=== PATIENT | male | born 1970 | race Caucasian/White ===

== ENCOUNTER 2019-09-03 10:22 | Inpatient (IN) | payer MEDICAID ==
[~2019-09-03] VITALS: Ht 190.5 cm; Wt 95.6 kg
[2019-09-03] MEDS ORDERED: methylPREDNISolone SOD SUCC 125 MG/2 ML VL IV ONE (11:00)
[2019-09-03] MEDS ORDERED: ONDANSETRON HCL 4 MG/2 ML VIAL IV ONE (11:00)
[2019-09-03] MEDS ORDERED: MORPHINE SULF INJ 2 MG/ML SYRINGE 1ML IV ONE (11:00)
[2019-09-03 11:21] LABS: Basophils # (auto) 0 uL; Basophils % (auto) 0.3 % (0.0-2.0); Eosinophils # (auto) 0.1 uL; Eosinophils % (auto) 0.6 % (0.0-7.0); Hemoglobin 15.1 g/dL (13.5-17.5); Lymphocytes # (auto) 1.5 uL; Lymphocytes % (auto) 14.3 % (10.0-50.0); Mean Corpuscular Hemoglobin 31.2 pg (28.0-32.0); Mean Corpuscular Hgb Conc. 33.7 g/dL (32.0-36.0); Mean Corpuscular Volume 92.7 fL (80.0-100.0); Monocytes # (auto) 0.5 uL; Monocytes % (auto) 4.9 % (0.0-12.0); Neutrophils # (auto) 8.6 uL; Neutrophils % (auto) 79.9 % (37.0-80.0); Nucleated Red Blood Cells % 0.1 %; Platelet Count (auto) 405 10^3/uL (140-450); Red Blood Cells 4.85 10^6/uL (4.5-5.90); Red Cell Distribution Width 13.3 % (11.8-14.3); White Blood Cell 10.7 10^3/uL (4.4-10.8)
[2019-09-03 11:30] LABS: Alanine Aminotransferase 56 U/L (16-61); Albumin 2.6 g/dL (3.4-5.0); Anion Gap 7 (5-15); Aspartate Aminotransferase 25 U/L (15-37); BUN/Creatinine Ratio 21.5; Blood Urea Nitrogen 28 mg/dL (7-18); Calcium 8.3 mg/dL (8.5-10.1); Carbon Dioxide 25 mmol/L (21-32); Chloride 105 mmol/L (98-107); GFR African American 76 mL/min; GFR Non-African American 63 mL/min; Glucose 141 mg/dL (74-106); Potassium 4.1 mmol/L (3.5-5.1); Sodium 137 mmol/L (136-145)
[2019-09-03 11:38] LABS: Alkaline Phosphatase 79 U/L (45-117); Bilirubin, Total 0.3 mg/dL (0.2-1.0); Total Protein 7.3 g/dL (6.4-8.2)
[2019-09-03 11:59] LABS: Lactic Acid w/Reflex 2.6 mmol/L (0.4-2.0)
[2019-09-03 12:24] LABS: Alcohol, Urine < 3.0 mg/dL (0-5); Amphetamine Screen, Urine NEGATIVE (NEGATIVE); Barbiturate Scree,Urine NEGATIVE (NEGATIVE); Benzodiazephine Screen, Urine NEGATIVE (NEGATIVE); Cannabinoid Screen, Urine NEGATIVE (NEGATIVE); Cocaine Screen, Urine NEGATIVE (NEGATIVE); Phencyclidine Screen, Urine NEGATIVE (NEGATIVE)
[2019-09-03 12:32] LABS: Opiate Scree,Urine POSITIVE (NEGATIVE)
[2019-09-03] MEDS ORDERED: MORPHINE SULF INJ 2 MG/ML SYRINGE 1ML IV PRN ×2 (16:00)
[2019-09-03] MEDS ORDERED: HYDROcodone-ACET 10/325MG TAB PO PRN (16:00)
[2019-09-03] MEDS ORDERED: NITROGLYCERIN 0.4 MG SL TAB SL PRN (16:00)
[2019-09-03] MEDS ORDERED: ALBUTEROL SULF 2.5 MG/0.5ML(0.5%) NEB SOLN NEB PRN (16:00)
[2019-09-03] MEDS ORDERED: SODIUM CHLORIDE 0.9% 1,000 ML IV ONE (16:00)
[2019-09-03] MEDS ORDERED: IPRATROPIUM BROM 0.5 MG/2.5ML INH SOL NEB PRN (16:00)
[2019-09-03] MEDS ORDERED: IOHEXOL 350 MG/ML 100ML IJ ONE (16:05)
[2019-09-03 17:14] LABS: INR 1.04 (0.9-1.15); Partial Thromboplastin Time 25.4 sec (23.64-32.05)
[2019-09-03] MEDS ORDERED: BICT1TAB PO (17:37)
[2019-09-03] MEDS ORDERED: GABA100C9 PO (17:37)
[2019-09-03] MEDS ORDERED: HYDR-4833 PO (17:37)
[2019-09-03] MEDS: MEPERIDINE HCL (25 MG/ML) 1ML VIAL IV PRN (18:16)
[2019-09-03] MEDS ORDERED: BACL20TA PO (18:29)
[2019-09-03] MEDS ORDERED: AZITHROMYCIN 250 MG TAB PO ONE (19:00)
[2019-09-03 20:00] VITALS: BP 121/71
[2019-09-03 20:01] VITALS: BP 117/81
[2019-09-03 22:00] VITALS: BP 121/71
[2019-09-03] MEDS ORDERED: GABAPENTIN 100 MG CAP PO SCH ×2 (22:00)
[2019-09-04] MEDS: MEPERIDINE HCL (25 MG/ML) 1ML VIAL IV PRN ×3 (00:24→13:04)
[2019-09-04 05:57] VITALS: BP 117/86
[2019-09-04] MEDS: GABAPENTIN 400 MG CAP PO SCH ×2 (06:44→14:44)
[2019-09-04 09:00] VITALS: BP 130/81
[2019-09-04] MEDS: NITROGLYCERIN 0.4 MG SL TAB SL PRN ×2 (09:25→09:30)
[2019-09-04] MEDS ORDERED: AZITHROMYCIN 250 MG TAB PO SCH (10:00)
[2019-09-04] MEDS ORDERED: PANTOPRAZOLE 40 MG TAB PO SCH (10:00)
[2019-09-04] MEDS ORDERED: BIKTARVY PO SCH (10:00)
[2019-09-04] MEDS ORDERED: SULFAMETHOX W/TRIMETH(800/160MG) DS TAB PO ONE (10:15)
[2019-09-04 13:00] VITALS: BP 102/62
[2019-09-04] MEDS ORDERED: SULFAMETHOX W/TRIMETH(800/160MG) DS TAB PO SCH (22:00)
[2019-09-04] MEDS ORDERED: methylPREDNISolone SOD SUCC 40 MG/ML VL IV SCH (22:00)
== END 2019-09-04 16:50 | disposition left against medical advice (07) | DRG 140 ==
LOC: ER 10:22 → TELE 10:23 → ER 10:45 → TELE-CENTR 17:11
PROVIDERS: ADMIT Nurse Practitioner Acute Care; ATTEND Internal Medicine
DX: J44.0 Chronic obstructive pulmonary disease with (acute) lower respiratory infection (principal); J18.9 Pneumonia, unspecified organism; N18.3 Chronic kidney disease, stage 3 (moderate); F17.210 Nicotine dependence, cigarettes, uncomplicated; Z79.891 Long term (current) use of opiate analgesic; Z80.9 Family history of malignant neoplasm, unspecified; Z83.3 Family history of diabetes mellitus; Z79.899 Other long term (current) drug therapy; Z53.29 Procedure and treatment not carried out because of patient's decision for other reasons
CPT/HCPCS: 36415; 71046; 71275; 80053; 80307; 83605; 83880; 84484; 85025; 85379; 85610; 85730; 87040; 93005; 93971; G0378; J2405

== ENCOUNTER 2022-04-25 18:21 | Emergency (ER) | payer MEDICAID ==
[~2022-04-25] VITALS: Ht 188 cm; Wt 106.8 kg
[~2022-04-25 18:21] MED LIST: BACL20TA PO; BICT1TAB PO; GABA100C9 PO; HYDR-4833 PO
[2022-04-25] MEDS ORDERED: MORPHINE SULFATE INJ 2 MG/ml SYRG IM ONE (21:15)
[2022-04-25 21:44] VITALS: BP 148/82
== END 2022-04-25 23:13 | disposition home or self-care (01) ==
LOC: EDBD 18:21 → ER 18:24
DX: G89.29 Other chronic pain (principal); M25.552 Pain in left hip; M16.12 Unilateral primary osteoarthritis, left hip; J44.9 Chronic obstructive pulmonary disease, unspecified; F17.210 Nicotine dependence, cigarettes, uncomplicated; Z79.899 Other long term (current) drug therapy
CPT/HCPCS: 72192; 96372; 99284; J2270

== ENCOUNTER 2023-04-25 17:07 | Inpatient (IN) | payer MEDICAID ==
[~2023-04-25] VITALS: Ht 188 cm; Wt 109.3 kg
[~2023-04-25 17:07] MED LIST changes: +GABA-1308 PO; -GABA100C9 PO
[2023-04-25] MEDS ORDERED: IOHEXOL 350 MG/ML 100ML IJ ONE ×2 (19:35→20:38)
[2023-04-25] MEDS ORDERED: ENOXAPARIN SOD 100 MG/1 ML SYRINGE SC ONE (20:00)
[2023-04-25 20:05] LABS: Basophils # (auto) 0 10 ^3/uL (0-0.2); Basophils % (auto) 0.7 % (0.0-2.0); Eosinophils # (auto) 0.1 10 ^3/uL (0-0.8); Eosinophils % (auto) 1.7 % (0.0-7.0); Hematocrit 39.6 % (41.0-53.0); Hemoglobin 13.3 g/dL (13.5-17.5); Lymphocytes # (auto) 2.1 10 ^3/uL (0.4-5.4); Lymphocytes % (auto) 34.3 % (10.0-50.0); Mean Corpuscular Hemoglobin 30.4 pg (28.0-32.0); Mean Corpuscular Hgb Conc. 33.6 g/dL (32.0-36.0); Mean Corpuscular Volume 90.5 fL (80.0-100.0); Monocytes # (auto) 0.5 10 ^3/uL (0-1.3); Neutrophils # (auto) 3.4 10 ^3/uL (1.6-8.6); Neutrophils % (auto) 55.3 % (37.0-80.0); Nucleated Red Blood Cells % 0.3 %; Red Blood Cells 4.37 10^6/uL (4.5-5.90); Red Cell Distribution Width 14.6 % (11.8-14.3); White Blood Cell 6.1 10^3/uL (4.4-10.8)
[2023-04-25 20:15] LABS: Albumin 4.4 g/dL (3.2-4.8); Alkaline Phosphatase 110 U/L (46-116); Anion Gap 5.7 (5-15); Aspartate Aminotransferase 12 U/L (13-40); BUN/Creatinine Ratio 12.7 (10.0-20.0); Bilirubin, Total 0.5 mg/dL (0.2-1.0); Blood Urea Nitrogen 16 mg/dL (9-23); Calcium 9.3 mg/dL (8.5-10.1); Carbon Dioxide 26.3 mmol/L (20-30); Chloride 108 mmol/L (98-107); Glucose 115 mg/dL (74-106); Potassium 4.7 mmol/L (3.5-5.1); Sodium 140 mmol/L (136-145); Total Protein 7.3 g/dL (5.7-8.2)
[2023-04-25 20:17] LABS: Alanine Aminotransferase 9 U/L (7-40)
[2023-04-25] MEDS ORDERED: DOCUSATE SOD 100 MG CAP PO PRN (21:30)
[2023-04-25] MEDS ORDERED: MORPHINE SULFATE INJ 2 MG/ml SYRG IV PRN (21:30)
[2023-04-25] MEDS ORDERED: ACETAMINOPHEN 325 MG TAB PO PRN (21:30)
[2023-04-25] MEDS ORDERED: NITROGLYCERIN 0.4 MG SL TAB SL PRN (21:30)
[2023-04-25 22:10] VITALS: PULSE 100; RESP 16; O2SAT 97
[2023-04-25] MEDS: GABAPENTIN 400 MG CAP PO SCH (22:35)
[2023-04-26] VITALS (8 sets, daily range): BP systolic 130–152; BP diastolic 98–103; PULSE 74–105; RESP 12–23; TEMP 97.7–98; O2SAT 96–100
[2023-04-26 02:06] LABS: Urine Bacteria NONE SEEN /hpf (None Seen); Urine Blood Negative /uL (Negative); Urine Clarity Clear (Clear); Urine Color Yellow (Yellow); Urine Hyaline Cast FEW /lpf (0 - 2); Urine Mucus FEW (None Seen); Urine Protein, UAD TRACE (Negative); Urine Specific Gravity 1.033 (1.001-1.035); Urine Urobilinogen Normal (Negative); Urine WBC 1 /hpf (0 - 3); Urine pH 5.5 (5.0-8.0)
[2023-04-26] MEDS: MORPHINE SULFATE INJ 2 MG/ml SYRG IV PRN ×3 (03:40→21:36)
[2023-04-26 06:00] LABS: Basophils # (auto) 0 10 ^3/uL (0-0.2); Basophils % (auto) 0.8 % (0.0-2.0); Eosinophils # (auto) 0.1 10 ^3/uL (0-0.8); Eosinophils % (auto) 2.4 % (0.0-7.0); Hematocrit 39.1 % (41.0-53.0); Hemoglobin 13.2 g/dL (13.5-17.5); Lymphocytes # (auto) 2.5 10 ^3/uL (0.4-5.4); Lymphocytes % (auto) 43.2 % (10.0-50.0); Mean Corpuscular Hemoglobin 30.4 pg (28.0-32.0); Mean Corpuscular Hgb Conc. 33.8 g/dL (32.0-36.0); Monocytes # (auto) 0.4 10 ^3/uL (0-1.3); Monocytes % (auto) 6.7 % (0.0-12.0); Neutrophils # (auto) 2.7 10 ^3/uL (1.6-8.6); Neutrophils % (auto) 46.9 % (37.0-80.0); Nucleated Red Blood Cells % 0.1 %; Red Blood Cells 4.34 10^6/uL (4.5-5.90); Red Cell Distribution Width 14.2 % (11.8-14.3); White Blood Cell 5.8 10^3/uL (4.4-10.8)
[2023-04-26] MEDS: GABAPENTIN 400 MG CAP PO SCH ×3 (06:00→21:23)
[2023-04-26 06:17] LABS: Alkaline Phosphatase 112 U/L (46-116); Anion Gap 4.8 (5-15); BUN/Creatinine Ratio 11.2 (10.0-20.0); Blood Urea Nitrogen 12 mg/dL (9-23); Calcium 8.9 mg/dL (8.7-10.4); Carbon Dioxide 25.2 mmol/L (20-30); Chloride 107 mmol/L (98-107); Glucose 92 mg/dL (74-106); Sodium 137 mmol/L (136-145)
[2023-04-26 06:18] LABS: Albumin 3.9 g/dL (3.2-4.8); Aspartate Aminotransferase 11 U/L (13-40)
[2023-04-26 06:19] LABS: Bilirubin, Total 0.6 mg/dL (0.2-1.0); Total Protein 6.7 g/dL (5.7-8.2)
[2023-04-26 06:26] LABS: Alanine Aminotransferase < 9 U/L (7-40)
[2023-04-26] MEDS: ONDANSETRON HCL 4 MG/2 ML VIAL IV PRN ×2 (08:04→21:35)
[2023-04-26 08:15] LABS: INR 1.13 (0.9-1.15); Prothrombin Time 11.8 sec (9.3-11.8)
[2023-04-26] MEDS: PANTOPRAZOLE 40 MG TAB PO SCH (10:00)
[2023-04-26] MEDS ORDERED: ENOXAPARIN SOD 120 MG/0.8 ML SYRINGE SC SCH (10:00)
[2023-04-26] MEDS ORDERED: LOS25T PO (11:34)
[2023-04-26] MEDS ORDERED: fentaNYL CITRATE 100 MCG/2 ML VL ONE (15:07)
[2023-04-26] MEDS ORDERED: SODIUM CHL 0.9% 0 ML ONE (15:07)
[2023-04-26] MEDS ORDERED: MIDAZOLAM HCL 2MG/2ML 2ml VIAL (1mg/ml) ONE (15:07)
[2023-04-26] MEDS ORDERED: ANGIOMAX 250 MG VIAL IV ONE (15:07)
[2023-04-26] MEDS ORDERED: LIDOCAINE 2%HCL (LOCAL ANESTH.) INJ 20ML MDV ONE (15:14)
[2023-04-26] MEDS ORDERED: IODIXANOL 320MG/ML 100ML BTL IV ONE (15:26)
[2023-04-26] MEDS ORDERED: HEPARIN SODIUM (PORCINE) 5000 UNITS/ML 1ML VIAL ONE ×2 (15:31→15:58)
[2023-04-26] MEDS ORDERED: HYDROmorphone HCL 2 MG/ML VL/or syr ONE (15:39)
[2023-04-26] MEDS ORDERED: HEPARIN DRIP/D5W 100UNITS/ML 250 ML IV SCH (20:45)
[2023-04-26] MEDS ORDERED: HEPARIN SODIUM (PORCINE) 5000 UNITS/ML 1ML VIAL IV ONE (20:45)
[2023-04-26] MEDS ORDERED: FUROSEMIDE 40 MG/4 ML VIAL IV ONE (20:45)
[2023-04-26 22:55] LABS: INR 1.09 (0.9-1.15); Partial Thromboplastin Time 58.3 SEC (24.5-34.5); Prothrombin Time 11.4 sec (9.3-11.8)
[2023-04-26 23:14] LABS: Basophils # (auto) 0.1 10 ^3/uL (0-0.2); Basophils % (auto) 0.9 % (0.0-2.0); Eosinophils # (auto) 0.1 10 ^3/uL (0-0.8); Eosinophils % (auto) 1.8 % (0.0-7.0); Hematocrit 40.2 % (41.0-53.0); Hemoglobin 13.7 g/dL (13.5-17.5); Lymphocytes # (auto) 2.3 10 ^3/uL (0.4-5.4); Lymphocytes % (auto) 35.1 % (10.0-50.0); Mean Corpuscular Hemoglobin 30.7 pg (28.0-32.0); Mean Corpuscular Volume 90.4 fL (80.0-100.0); Monocytes # (auto) 0.4 10 ^3/uL (0-1.3); Monocytes % (auto) 5.8 % (0.0-12.0); Neutrophils # (auto) 3.7 10 ^3/uL (1.6-8.6); Neutrophils % (auto) 56.4 % (37.0-80.0); Nucleated Red Blood Cells % 0.1 %; Red Blood Cells 4.45 10^6/uL (4.5-5.90); Red Cell Distribution Width 13.9 % (11.8-14.3); White Blood Cell 6.5 10^3/uL (4.4-10.8)
[2023-04-27] MEDS: ONDANSETRON HCL 4 MG/2 ML VIAL IV PRN (02:15)
[2023-04-27] MEDS: MORPHINE SULFATE INJ 2 MG/ml SYRG IV PRN ×4 (02:16→21:47)
[2023-04-27 05:08] VITALS: BP 98/57; PULSE 101; RESP 18; O2SAT 90
[2023-04-27 05:51] LABS: Basophils # (auto) 0 10 ^3/uL (0-0.2); Basophils % (auto) 0.5 % (0.0-2.0); Eosinophils # (auto) 0.1 10 ^3/uL (0-0.8); Eosinophils % (auto) 1.5 % (0.0-7.0); Hematocrit 39.3 % (41.0-53.0); Hemoglobin 13.5 g/dL (13.5-17.5); Lymphocytes # (auto) 2.2 10 ^3/uL (0.4-5.4); Lymphocytes % (auto) 31.2 % (10.0-50.0); Mean Corpuscular Hemoglobin 30.7 pg (28.0-32.0); Mean Corpuscular Hgb Conc. 34.4 g/dL (32.0-36.0); Mean Corpuscular Volume 89.1 fL (80.0-100.0); Monocytes # (auto) 0.4 10 ^3/uL (0-1.3); Monocytes % (auto) 5.7 % (0.0-12.0); Neutrophils # (auto) 4.3 10 ^3/uL (1.6-8.6); Neutrophils % (auto) 61.1 % (37.0-80.0); Nucleated Red Blood Cells % 0.1 %; Red Blood Cells 4.41 10^6/uL (4.5-5.90); Red Cell Distribution Width 13.6 % (11.8-14.3)
[2023-04-27 06:09] LABS: INR 1.09 (0.9-1.15); Prothrombin Time 11.4 sec (9.3-11.8)
[2023-04-27] MEDS: GABAPENTIN 400 MG CAP PO SCH ×3 (06:10→21:39)
[2023-04-27] MEDS: HEPARIN DRIP/D5W 100UNITS/ML 250 ML IV SCH ×2 (06:53→20:24)
[2023-04-27 08:00] VITALS: BP 110/77; PULSE 100; PULSE 99; RESP 19; TEMP 98.4
[2023-04-27 09:00] VITALS: BP 110/77; PULSE 101; RESP 19; TEMP 98.4; O2SAT 94
[2023-04-27] MEDS ORDERED: LOSARTAN POTASSIUM 25 MG TAB PO SCH (10:00)
[2023-04-27] MEDS: BIKTARVY PO SCH (10:00)
[2023-04-27] MEDS: PANTOPRAZOLE 40 MG TAB PO SCH (10:24)
[2023-04-27 13:00] VITALS: BP 106/76; PULSE 100; RESP 19; O2SAT 90
[2023-04-27 13:27] LABS: INR 1.07 (0.9-1.15); Partial Thromboplastin Time 69.6 SEC (24.5-34.5); Prothrombin Time 11.2 sec (9.3-11.8)
[2023-04-27 17:00] VITALS: BP 114/75; PULSE 101; RESP 20; TEMP 97.9; O2SAT 95
[2023-04-27] MEDS: FUROSEMIDE 20 MG TAB PO SCH (18:36)
[2023-04-27 19:23] LABS: INR 1.06 (0.9-1.15); Partial Thromboplastin Time 69.8 SEC (24.5-34.5); Prothrombin Time 11.1 sec (9.3-11.8)
[2023-04-27 20:00] VITALS: PULSE 92
[2023-04-27] MEDS: CARVEDILOL 3.125 MG TAB PO SCH (21:40)
[2023-04-28] VITALS (11 sets, daily range): BP systolic 109–132; BP diastolic 64–93; PULSE 70–93; RESP 12–20; TEMP 97.6–98.4; O2SAT 93–99
[2023-04-28] MEDS: HEPARIN DRIP/D5W 100UNITS/ML 250 ML IV SCH (01:10)
[2023-04-28 01:29] LABS: INR 1.02 (0.9-1.15); Partial Thromboplastin Time 57.6 SEC (24.5-34.5); Prothrombin Time 10.7 sec (9.3-11.8)
[2023-04-28] MEDS: FUROSEMIDE 20 MG TAB PO SCH ×2 (06:00→18:00)
[2023-04-28] MEDS: GABAPENTIN 400 MG CAP PO SCH ×3 (06:00→22:04)
[2023-04-28 08:03] LABS: Basophils # (auto) 0 10 ^3/uL (0-0.2); Basophils % (auto) 0.5 % (0.0-2.0); Eosinophils # (auto) 0.1 10 ^3/uL (0-0.8); Eosinophils % (auto) 1.7 % (0.0-7.0); Hematocrit 40.1 % (41.0-53.0); Hemoglobin 13.6 g/dL (13.5-17.5); Mean Corpuscular Hemoglobin 30.4 pg (28.0-32.0); Mean Corpuscular Hgb Conc. 33.8 g/dL (32.0-36.0); Mean Corpuscular Volume 89.9 fL (80.0-100.0); Monocytes # (auto) 0.4 10 ^3/uL (0-1.3); Monocytes % (auto) 7.4 % (0.0-12.0); Neutrophils # (auto) 3.3 10 ^3/uL (1.6-8.6); Neutrophils % (auto) 56.4 % (37.0-80.0); Nucleated Red Blood Cells % 0.2 %; Red Blood Cells 4.46 10^6/uL (4.5-5.90); Red Cell Distribution Width 13.9 % (11.8-14.3); White Blood Cell 5.9 10^3/uL (4.4-10.8)
[2023-04-28 08:23] LABS: Albumin 3.9 g/dL (3.2-4.8); Alkaline Phosphatase 95 U/L (46-116); Anion Gap 4 (5-15); Aspartate Aminotransferase 13 U/L (13-40); BUN/Creatinine Ratio 12.3 (10.0-20.0); Bilirubin, Total 0.5 mg/dL (0.2-1.0); Blood Urea Nitrogen 14 mg/dL (9-23); Calcium 8.9 mg/dL (8.5-10.1); Carbon Dioxide 30 mmol/L (20-30); Chloride 105 mmol/L (98-107); Glucose 100 mg/dL (74-106); Potassium 4.4 mmol/L (3.5-5.1); Sodium 139 mmol/L (136-145); Total Protein 6.6 g/dL (5.7-8.2)
[2023-04-28 08:32] LABS: Alanine Aminotransferase < 9 U/L (7-40); INR 1.03 (0.9-1.15); Partial Thromboplastin Time 53.3 SEC (24.5-34.5); Prothrombin Time 10.8 sec (9.3-11.8)
[2023-04-28] MEDS: BIKTARVY PO SCH (10:00)
[2023-04-28] MEDS: PANTOPRAZOLE 40 MG TAB PO SCH (10:38)
[2023-04-28] MEDS: HYDROcodone-ACET 5/325MG TAB PO PRN (10:39)
[2023-04-28] MEDS: CARVEDILOL 3.125 MG TAB PO SCH ×2 (10:39→22:05)
[2023-04-28] MEDS: MORPHINE SULFATE INJ 2 MG/ml SYRG IV PRN ×2 (13:16→20:33)
[2023-04-28] MEDS ORDERED: IODIXANOL 320MG/ML 100ML BTL IV ONE ×2 (15:26→16:38)
[2023-04-28] MEDS ORDERED: LIDOCAINE 2%HCL (LOCAL ANESTH.) INJ 20ML MDV ONE (15:26)
[2023-04-28] MEDS ORDERED: SODIUM CHL 0.9% 0 ML ONE (15:33)
[2023-04-28] MEDS ORDERED: ANGIOMAX 250 MG VIAL IV ONE (15:33)
[2023-04-28] MEDS ORDERED: MIDAZOLAM HCL 2MG/2ML 2ml VIAL (1mg/ml) ONE (15:33)
[2023-04-28] MEDS ORDERED: fentaNYL CITRATE 100 MCG/2 ML VL ONE (15:33)
[2023-04-28] MEDS ORDERED: HYDROmorphone HCL 2 MG/ML VL/or syr ONE (16:00)
[2023-04-28] MEDS ORDERED: HEPARIN SODIUM (PORCINE) 5000 UNITS/ML 1ML VIAL ONE ×2 (16:07→16:11)
[2023-04-28] MEDS ORDERED: hydrALAZINE HCL 20 MG/ML VL ONE (16:35)
[2023-04-28] MEDS ORDERED: HEPARIN 1,000 UNITS/ml 1ML VIAL ONE (16:43)
[2023-04-28] MEDS ORDERED: ENOXAPARIN SOD 120 MG/0.8 ML SYRINGE SC ONE (19:30)
[2023-04-29] MEDS: MORPHINE SULFATE INJ 2 MG/ml SYRG IV PRN ×2 (02:40→07:06)
[2023-04-29 05:00] VITALS: BP 121/83; PULSE 82; RESP 20; TEMP 98.3; O2SAT 96
[2023-04-29] MEDS: GABAPENTIN 400 MG CAP PO SCH ×2 (05:54→14:00)
[2023-04-29] MEDS: FUROSEMIDE 20 MG TAB PO SCH (05:55)
[2023-04-29 06:57] LABS: Albumin 3.8 g/dL (3.2-4.8); Alkaline Phosphatase 90 U/L (46-116); Anion Gap 2 (5-15); Aspartate Aminotransferase 11 U/L (13-40); BUN/Creatinine Ratio 10.9 (10.0-20.0); Blood Urea Nitrogen 14 mg/dL (9-23); Calcium 8.7 mg/dL (8.5-10.1); Carbon Dioxide 29 mmol/L (20-30); Chloride 106 mmol/L (98-107); Glucose 101 mg/dL (74-106); Potassium 4.2 mmol/L (3.5-5.1); Sodium 137 mmol/L (136-145)
[2023-04-29 06:58] LABS: Bilirubin, Total 0.3 mg/dL (0.2-1.0); Total Protein 6.3 g/dL (5.7-8.2)
[2023-04-29 06:59] LABS: Alanine Aminotransferase < 9 U/L (7-40)
[2023-04-29 07:41] LABS: Basophils # (auto) 0 10 ^3/uL (0-0.2); Basophils % (auto) 0.4 % (0.0-2.0); Eosinophils # (auto) 0.1 10 ^3/uL (0-0.8); Eosinophils % (auto) 2.2 % (0.0-7.0); Hematocrit 36.2 % (41.0-53.0); Hemoglobin 12.4 g/dL (13.5-17.5); Lymphocytes # (auto) 1.6 10 ^3/uL (0.4-5.4); Mean Corpuscular Hemoglobin 30.7 pg (28.0-32.0); Mean Corpuscular Hgb Conc. 34.4 g/dL (32.0-36.0); Mean Corpuscular Volume 89.2 fL (80.0-100.0); Monocytes # (auto) 0.4 10 ^3/uL (0-1.3); Monocytes % (auto) 7.1 % (0.0-12.0); Neutrophils # (auto) 3.4 10 ^3/uL (1.6-8.6); Neutrophils % (auto) 61.3 % (37.0-80.0); Red Blood Cells 4.06 10^6/uL (4.5-5.90); Red Cell Distribution Width 13.9 % (11.8-14.3); White Blood Cell 5.6 10^3/uL (4.4-10.8)
[2023-04-29 07:49] LABS: INR 1.04 (0.9-1.15); Partial Thromboplastin Time 27.9 SEC (24.5-34.5); Prothrombin Time 10.9 sec (9.3-11.8)
[2023-04-29 09:11] VITALS: BP 128/82; PULSE 88; RESP 16; TEMP 98.9; O2SAT 95
[2023-04-29] MEDS: HYDROcodone-ACET 5/325MG TAB PO PRN (09:31)
[2023-04-29] MEDS: CARVEDILOL 3.125 MG TAB PO SCH (09:31)
[2023-04-29] MEDS: PANTOPRAZOLE 40 MG TAB PO SCH (09:31)
[2023-04-29] MEDS ORDERED: SACUBITRIL-VALSARTAN 24mg/26mg TAB PO SCH ×2 (10:00)
[2023-04-29] MEDS ORDERED: APIX5TAB PO (10:03)
[2023-04-29] MEDS ORDERED: CAR3125T PO (10:03)
[2023-04-29] MEDS ORDERED: PANT40T PO (10:03)
[2023-04-29] MEDS ORDERED: FUR20T PO (10:03)
[2023-04-29] MEDS ORDERED: SACU1TAB PO (10:03)
[2023-04-29] MEDS: BIKTARVY PO SCH (10:04)
[2023-04-29 13:00] VITALS: BP 129/69; PULSE 82; RESP 16; TEMP 98.5; O2SAT 93
[2023-04-29 14:01] VITALS: BP 128/82; PULSE 80; TEMP 36.9
== END 2023-04-29 14:50 | disposition home or self-care (01) | DRG 169 ==
LOC: ER 17:07 → TELE 21:34 → TELE-EAST 04-26 18:01
PROVIDERS: ADMIT Nurse Practitioner; ATTEND Nurse Practitioner
PROC: 02CR3ZZ Extirpation of Matter from Left Pulmonary Artery, Percutaneous Approach (ICD-10-PCS; principal; 2023-04-26)
PROC: 02CQ3ZZ Extirpation of Matter from Right Pulmonary Artery, Percutaneous Approach (ICD-10-PCS; 2023-04-26)
PROC: B31T1ZZ Fluoroscopy of Left Pulmonary Artery using Low Osmolar Contrast (ICD-10-PCS; 2023-04-26)
PROC: B31S1ZZ Fluoroscopy of Right Pulmonary Artery using Low Osmolar Contrast (ICD-10-PCS; 2023-04-26)
PROC: X2CV3T7 Extirpation of Matter from Left Lower Extremity Vein using Computer-aided Mechanical Aspiration, Percutaneous Approach, New Technology Group 7 (ICD-10-PCS; 2023-04-28)
DX: I82.422 Acute embolism and thrombosis of left iliac vein (principal); I26.09 Other pulmonary embolism with acute cor pulmonale; I50.23 Acute on chronic systolic (congestive) heart failure; I82.412 Acute embolism and thrombosis of left femoral vein; D68.9 Coagulation defect, unspecified; I42.0 Dilated cardiomyopathy; B20 Human immunodeficiency virus [HIV] disease; E66.9 Obesity, unspecified; I11.0 Hypertensive heart disease with heart failure; J44.9 Chronic obstructive pulmonary disease, unspecified; R09.02 Hypoxemia; E11.9 Type 2 diabetes mellitus without complications; F15.90 Other stimulant use, unspecified, uncomplicated; F17.210 Nicotine dependence, cigarettes, uncomplicated; Z68.30 Body mass index [BMI] 30.0-30.9, adult; Z80.8 Family history of malignant neoplasm of other organs or systems; Z86.718 Personal history of other venous thrombosis and embolism; Z91.148 Patient's other noncompliance with medication regimen for other reason; Z83.3 Family history of diabetes mellitus
CPT/HCPCS: 33915; 36415; 37187; 71275; 74177; 75743; 76942; 80053; 81001; 83880; 84443; 84484; 85025; 85610; 85730; 86706; 93005; 93306; 93971; 96372; 99152; 99153; C1769; C1894; G0378; J2250; J2405; Q9967

== ENCOUNTER 2024-11-17 21:48 | Emergency (ER) | payer MEDICARE, MEDICAID ==
[~2024-11-17] VITALS: Ht 188 cm; Wt 111.5 kg
[~2024-11-17 21:48] MED LIST changes: +APIX5TAB PO; +CARV-214 PO; +FURO20TA4 PO; +LOS25T PO; +PANT40T PO; +SACU1TAB PO
--- NOTE | 2024-11-17 22:05 | ED.PDOC ---
History of Present Illness HPI Comments 54-year-old male presents with a chief complaint of muscle pain x 1 week since being released from care home. Patient has drug-seeking behavior and is requesting Percocet's for "massive pain that I am in, I cannot walk because I feel so bloated and swollen". Patient denies seeing pain management and states that anything other than Percocet's do not work for his pain. No other symptoms or modifying factors present at this time. Time Seen by MD: 21:57 Primary Care Provider: AUGUSTIN Reviewed Notes: Medications, Allergies Allergies: Coded Allergies: NO KNOWN ALLERGIES (Unverified , 01/10/19) Home Meds Active Scripts Losartan Potassium (Losartan Potassium) 25 Mg Tab, 1 TAB PO DAILY for 90 Days, #90 TAB 1 Refill Prov:GARY GIVENS MD 11/18/24 Carvedilol (COREG) 3.125 Mg Tab, 3.125 MG OR BID for 90 Days, #180 TAB Prov:GARY GIVENS MD 11/18/24 Gabapentin (Once-Daily) (Gabapentin) 300 Mg Tab, 300 MG PO Q6HP PRN, #90 TAB Prov:GARY GIVENS MD 11/18/24 Apixaban Base (ELIQUIS) 5 Mg Tab, 5 MG PO BID for 30 Days, #60 TAB Prov:ANA ROSA MICHAUD DIGITAL ASSOCIATE 04/29/23 Sacubitril-Valsartan (Entresto 24-26 mg) 1 Tab Tab, 1 TAB PO BID for 30 Days, #60 TAB Prov:ANA ROSA MICHAUD NP 04/29/23 Pantoprazole Sodium Sesquihydr (Pantoprazole Sodium) 40 Mg Tab, 40 MG PO DAILY for 30 Days, #30 TAB Prov:ANA ROSA MICHAUD NP 04/29/23 Furosemide (Furosemide) 20 Mg Tab, 20 MG PO BIDD for 30 Days, #60 TAB Prov:ANA ROSA MICHAUD NP 04/29/23 Carvedilol (COREG) 3.125 Mg Tab, 3.125 MG PO Q12HR for 30 Days, #60 TAB Prov:ANA ROSA MICHAUD DIGITAL ASSOCIATE 04/29/23 Reported Medications Losartan Potassium (Losartan Potassium) 25 Mg Tab, 1 TAB PO DAILY 04/26/23 Baclofen (Baclofen) 20 Mg Tab, 10 MG PO BID, TAB 09/03/19 Gabapentin (Gabapentin) 100 Mg Cap, 800 MG PO TID for 30 Days, MG 09/03/19 Lumrwisspuz-Nfbflypnimyqr-Wbrn (Biktarvy 50-200-25 mg) 1 Tab Tab, 1 TAB PO, TAB 09/03/19 Hydrocodone-Acetaminophen ([place] 5/325MG) 1 Tab Tb, 1 TAB PO, #90 TAB 09/03/19 Information Source: Patient Mode of Arrival: Wheelchair Severity: Moderate Timing: Days Duration: Since onset Prehospital treatment: None Past Medical History PAST MEDICAL HISTORY: CHF, COPD, HIV Surgical History: Denies all surgeries Family History Family History: Reviewed,noncontributory to illness Social History Smoker: Cigarettes Alcohol: Occasionally Drugs: Marijuana, Methamphetamine Lives In: Home Constitutional: denies: chills, diaphoresis, fatigue, fever, malaise, sweats, weakness, others EENTM: denies: blurred vision, double vision, ear bleeding, ear discharge, ear drainage, ear pain, ear ringing, eye pain, eye redness, hearing loss, mouth pain, mouth swelling, nasal discharge, nose bleeding, nose congestion, nose pain, photophobia, tearing, throat pain, throat swelling, voice changes, others Respiratory: denies: cough, hemoptysis, orthopnea, SOB at rest, shortness of breath, SOB with excertion, stridor, wheezing, others Cardiovascular: denies: chest pain, dizzy spells, diaphoresis, Dyspnea on exertion, edema, irregular heart beat, left arm pain, lightheadedness, palpitations, PND, syncope, others Gastrointestinal: denies: abdomen distended, abdominal pain, blood streaked bowels, constipated, diarrhea, dysphagia, difficulty swallowing, hematemesis, melena, nausea, poor appetite, poor fluid intake, rectal bleeding, rectal pain, vomiting, others Genitourinary: denies: burning, dysuria, flank pain, frequency, hematuria, incontinence, penile discharge, penile sore, pain, testicle pain, testicle s welling, urgency, others Neurological: denies: dizziness, fainting, headache, left sided numbness, left sided weakness, numbness, paresthesia, pre-existing deficit, right sided numbness, right sided weakness, seizure, speech problems, tingling, tremors, weakness, others Musculoskeletal: reports: muscle pain; denies: back pain, gout, joint pain, joint swelling, muscle stiffness, neck pain, others Integumetry: denies: bruises, change in color, change in hair/nails, dryness, laceration, lesions, lumps, rash, wounds, others Allergic/Immunocompromised: denies: Difficulty Healing, Frequent Infections, Hives, Itching, others Hematologic/Lymphatic: denies: anemia, blood clots, easy bleeding, easy bruising, swollen glands, others Endocrine: denies: excessive hunger, excessive sweating, excessive thirst, excessive urination, flushing, intolerance to cold, intolerance to heat, unexplained weight gain, unexplained weight loss, others Psychiatric: denies: anxiety, bipolar disorder, depression, hopeless, panic disorder, schizophrenia, sleepless, suicidal, others All Other Systems: Reviewed and Negative Physical Exam General Appearance: No Apparent Distress, Normal HEENT: Normal ENT Inspection, Pharynx Normal, TMs Normal Neck: Full Range of Motion, Non-Tender, Normal, Normal Inspection Respiratory: Chest Non-Tender, Lungs Clear, No Accessory Muscle Use, No Res piratory Distress, Normal Breath Sounds Cardiovascular: No Edema, No JVD, No Murmur, No Gallop, Normal Peripheral Pulses, Regular Rate/Rhythm Breast Exam: Deferred Gastrointestinal: No Organomegaly, Non Tender, No Pulsatile Mass, Normal Bowel Sounds, Soft Genitalia: Deferred Pelvic: Deferred Rectal: Deferred Extremities: No calf tenderness, Normal capillary refill, Normal inspection, Normal range of motion, Non-tender, No pedal edema Musculoskeletal : Apperance: Normal Neurologic: Alert, nurse supervisor II-XII nml as Tested, No Motor Deficits, Normal Affect, Normal Mood, No Sensory Deficits Cerebellar Function: Normal Reflexes: Normal Skin: Dry, Normal Color, Warm Lymphatic: No Adenopathy Was a procedure done? Was a procedure done?: No Differential Dx Considerations may include: Differential diagnosis includes but is not limited to: asthma, pneumonia, congestive heart failure, pleural effusion, empyema, pulmonary embolus, and others X-Ray, Labs, Meds, VS Vital Signs Date Time Temp Pulse Resp B/P (MAP) Pulse Ox O2 Delivery O2 Flow Rate FiO2 11/18/24 00:21 86 16 98 Room Air* 0 21 4/6/25 00:20 97.4 86 16 153/94 (113) 98 97.4 11/18/24 00:17 153/94 11/17/24 22:32 20 95 Room Air 0 11/17/24 22:32 97.4 103 20 151/110 (124) 95 97.4 Lab Test 11/17/24 23:08 11/17/24 22:17 Range/Units Troponin I High Sensitivity 4 3 L </=54 ng/L White Blood Count 6.0 4.4-10.8 10^3/uL Red Blood Count 4.23 L 4.5-5.90 10^6/uL Hemoglobin 12.9 L 13.5-17.5 g/dL Hematocrit 38.3 L 41.0-53.0 % Mean Corpuscular Volume 90.3 80.0-100.0 fL Mean Corpuscular Hemoglobin 30.5 28.0-32.0 pg Mean Corpuscular Hemoglobin Concent 33.8 32.0-36.0 g/dL Red Cell Distribution Width 13.5 11.8-14.3 % Platelet Count 229 140-450 10^3/uL Mean Platelet Volume 6.6 L 6.9-10.8 fL Neutrophils (%) (Auto) 61.1 37.0-80.0 % Lymphocytes (%) (Auto) 29.6 10.0-50.0 % Monocytes (%) (Auto) 7.0 0.0-12.0 % Eosinophils (%) (Auto) 1.6 0.0-7.0 % Basophils (%) (Auto) 0.7 0.0-2.0 % Neutrophils # (Auto) 3.6 1.6-8.6 10 ^3/uL Lymphocytes # (Auto) 1.8 0.4-5.4 10 ^3/uL Monocytes # (Auto) 0.4 0-1.3 10 ^3/uL Eosinophils # (Auto) 0.1 0-0.8 10 ^3/uL Basophils # (Auto) 0 0-0.2 10 ^3/uL Nucleated Red Blood Cells 0.1 % Sodium Level 143 136-145 mmol/L Potassium Level 4.7 3.5-5.1 mmol/L Chloride Level 109 H 98-107 mmol/L Carbon Dioxide Level 28 20-31 mmol/L Anion Gap 6 5-15 Blood Urea Nitrogen 20 9-23 mg/dL Creatinine 1.26 0.700-1.30 mg/dL Glomerular Filtration Rate Calc 68 >90 mL/min BUN/Creatinine Ratio 15.9 10.0-20.0 Serum Glucose 88 74-106 mg/dL Calcium Level 10.0 8.7-10.4 mg/dL Total Bilirubin 0.3 0.2-1.0 mg/dL Aspartate Amino Transferase (AST) 13 13-40 U/L Alanine Aminotransferase (ALT) < 9 7-40 U/L Alkaline Phosphatase 86 46-116 U/L B-Type Natriuretic Peptide 53.25 0-100 pg/mL Total Protein 7.4 5.7-8.2 g/dL Albumin 4.7 3.2-4.8 g/dL Current Medications Medications (Trade) Dose Ordered Sig/Brad Route Start Time Stop Time Status Last Admin Acetaminophen/ Hydrocodone Bitart ([place] 10/325MG Tab) 1 tab ONCE ONCE PO 11/17/24 22:15 11/17/24 22:16 DC 11/18/24 00:18 Time of 1ST Reevaluation: 22:27 Reevaluation 1ST: Unchanged Patient Education/Counseling: Diagnosis, Treatment, Prognosis Family Education/Counseling: No Family Present Departure 1 Departure Time of Disposition: 00:13 Impression: Primary Impression: Chronic left hip pain Additional Impressions: Degenerative arthritis of hip Hypertension Disposition: 01 HOME / SELF CARE / HOMELESS Condition: Stable e-Prescriptions Losartan Potassium (Losartan Potassium) 25 Mg Tab 1 TAB PO DAILY for 90 Days, #90 TAB 1 Refill Prov: GARY GIVENS MD 11/18/24 Carvedilol (COREG) 3.125 Mg Tab 3.125 MG OR BID for 90 Days, #180 TAB Prov: GARY GIVENS MD 11/18/24 Gabapentin (Once-Daily) (Gabapentin) 300 Mg Tab 300 MG PO Q6HP PRN, #90 TAB Prov: GARY GIVNES MD 11/18/24 Discharged With: Self Critical Care Note Critical Care Time?: No Stability Stability form required: No Heart Score Heart Score: Heart Score Response (Comments) Value History N/A 0 EKG N/A 0 Age N/A 0 Risk Factors N/A 0 Troponin N/A 0 Total 0 I personally scribed for GARY GIVENS MD ([email or web address]) on 11/17/24 at 22:05. Electronically submitted by Kole Lee ([email or web address]). GARY GIVENS MD Nov 17, 2024 22:05
[2024-11-17 22:26] LABS: Basophils # (auto) 0 10 ^3/uL (0-0.2); Basophils % (auto) 0.7 % (0.0-2.0); Eosinophils # (auto) 0.1 10 ^3/uL (0-0.8); Eosinophils % (auto) 1.6 % (0.0-7.0); Hematocrit 38.3 % (41.0-53.0); Hemoglobin 12.9 g/dL (13.5-17.5); Lymphocytes # (auto) 1.8 10 ^3/uL (0.4-5.4); Lymphocytes % (auto) 29.6 % (10.0-50.0); Mean Corpuscular Hemoglobin 30.5 pg (28.0-32.0); Mean Corpuscular Hgb Conc. 33.8 g/dL (32.0-36.0); Mean Corpuscular Volume 90.3 fL (80.0-100.0); Monocytes # (auto) 0.4 10 ^3/uL (0-1.3); Neutrophils # (auto) 3.6 10 ^3/uL (1.6-8.6); Neutrophils % (auto) 61.1 % (37.0-80.0); Nucleated Red Blood Cells % 0.1 %; Platelet Count (auto) 229 10^3/uL (140-450); Red Blood Cells 4.23 10^6/uL (4.5-5.90); Red Cell Distribution Width 13.5 % (11.8-14.3)
[2024-11-17 22:45] LABS: Albumin 4.7 g/dL (3.2-4.8); Alkaline Phosphatase 86 U/L (46-116); Anion Gap 6 (5-15); Aspartate Aminotransferase 13 U/L (13-40); BUN/Creatinine Ratio 15.9 (10.0-20.0); Bilirubin, Total 0.3 mg/dL (0.2-1.0); Blood Urea Nitrogen 20 mg/dL (9-23); Carbon Dioxide 28 mmol/L (20-31); Glucose 88 mg/dL (74-106); Potassium 4.7 mmol/L (3.5-5.1); Sodium 143 mmol/L (136-145); Total Protein 7.4 g/dL (5.7-8.2)
--- NOTE | 2024-11-17 22:45 | DVH ---
CHEST RADIOGRAPH Indication: SOB Technique: Single frontal view of the chest was obtained Comparison: None FINDINGS: Lines and Tubes: None Lungs: No focal consolidation. Pleura: No effusion. No pneumothorax. Cardiomediastinal contours: Unremarkable Bones: No acute osseous abnormality. IMPRESSION: 1. No acute cardiopulmonary disease.
[2024-11-17 22:46] LABS: Alanine Aminotransferase < 9 U/L (7-40); Chloride 109 mmol/L (98-107)
[2024-11-18] MEDS ORDERED: LOSA-533 PO (00:11)
[2024-11-18] MEDS ORDERED: GABA300T4 PO (00:11)
[2024-11-18] MEDS ORDERED: CARV-214 OR (00:11)
[2024-11-18] MEDS: cloNIDine HCL 0.1 MG TAB PO ONE (00:17)
[2024-11-18] MEDS: HYDROcodone-ACET 10/325MG TAB PO ONE (00:18)
[2024-11-18 00:20] VITALS: BP 153/94; TEMP 97.4
[2024-11-18 00:21] VITALS: PULSE 86; RESP 16; O2SAT 98
== END 2024-11-18 00:40 | disposition home or self-care (01) ==
LOC: ER 21:48
DX: G89.29 Other chronic pain (principal); M25.552 Pain in left hip; M16.12 Unilateral primary osteoarthritis, left hip; I11.0 Hypertensive heart disease with heart failure; I50.9 Heart failure, unspecified; J44.9 Chronic obstructive pulmonary disease, unspecified; F17.210 Nicotine dependence, cigarettes, uncomplicated; F12.90 Cannabis use, unspecified, uncomplicated; F15.90 Other stimulant use, unspecified, uncomplicated; Z79.01 Long term (current) use of anticoagulants; Z79.899 Other long term (current) drug therapy
CPT/HCPCS: 36415; 71045; 80053; 83880; 84484; 85025

== ENCOUNTER 2025-07-12 00:41 | Emergency (ER) | payer MEDICARE, MEDICAID ==
[~2025-07-12] VITALS: Ht 182.9 cm; Wt 111.3 kg
[~2025-07-12 00:41] MED LIST changes: +CARV-214 OR; +GABA300T4 PO; +LOSA-533 PO
[2025-07-12 00:44] VITALS: BP 137/87; PULSE 123; RESP 20; TEMP 98; O2SAT 98
[2025-07-12 01:40] LABS: Hematocrit 39.6 % (41.0-53.0); Hemoglobin 13.1 g/dL (13.5-17.5); Mean Corpuscular Hemoglobin 30.3 pg (28.0-32.0); Mean Corpuscular Volume 91.9 fL (80.0-100.0); Nucleated Red Blood Cells % 0.0 %
[2025-07-12 01:51] LABS: Alanine Aminotransferase 15 U/L (7-40); Albumin 4.2 g/dL (3.2-4.8); Anion Gap 8 (5-15); BUN/Creatinine Ratio 15.7 (10.0-20.0); Bilirubin, Total 0.4 mg/dL (0.2-1.0); Blood Urea Nitrogen 21 mg/dL (9-23); Calcium 8.9 mg/dL (8.7-10.4); Carbon Dioxide 26 mmol/L (20-31); Glucose 83 mg/dL (74-106); Potassium 4.6 mmol/L (3.5-5.1); Sodium 142 mmol/L (136-145); Total Protein 6.9 g/dL (5.7-8.2)
[2025-07-12 01:55] LABS: Alkaline Phosphatase 119 U/L (46-116); Chloride 108 mmol/L (98-107)
--- NOTE | 2025-07-12 02:11 | ED.PDOC ---
History of Present Illness HPI Comments 55-year-old male who came to ER for lower extremity swelling. Patient has history of CHF, COPD. With the past few days, he has been complaining of worsening bipedal edema, with progressive worsening of shortness of breath and chest discomfort. Noted difficulty ambulating due to the lower extremity swelling Chief Complaint: Lower Extremity Time Seen by MD: 02:11 Primary Care Provider: AUGUSTIN Reviewed Notes: Nurses Notes Allergies: Coded Allergies: NO KNOWN ALLERGIES (Unverified , 01/10/19) Home Meds Active Scripts Losartan Potassium (Losartan Potassium) 25 Mg Tab, 1 TAB PO DAILY for 90 Days, #90 TAB 1 Refill Prov:GARY GIVENS MD 11/18/24 Carvedilol (COREG) 3.125 Mg Tab, 3.125 MG OR BID for 90 Days, #180 TAB Prov:GARY GIVENS MD 11/18/24 Gabapentin (Once-Daily) (Gabapentin) 300 Mg Tab, 300 MG PO Q6HP PRN, #90 TAB Prov:GARY GIVENS MD 11/18/24 Apixaban Base (ELIQUIS) 5 Mg Tab, 5 MG PO BID for 30 Days, #60 TAB Prov:ANA ROSA MICHAUD NP 04/29/23 Sacubitril-Valsartan (Entresto 24-26 mg) 1 Tab Tab, 1 TAB PO BID for 30 Days, #60 TAB Prov:ANA ROSA MICHAUD ASSAYER 04/29/23 Pantoprazole Sodium Sesquihydr (Pantoprazole Sodium) 40 Mg Tab, 40 MG PO DAILY for 30 Days, #30 TAB Prov:ANA ROSA MICHAUD NP 04/29/23 Furosemide (Furosemide) 20 Mg Tab, 20 MG PO BIDD for 30 Days, #60 TAB Prov:ANA ROSA MICHAUD NP 04/29/23 Carvedilol (COREG) 3.125 Mg Tab, 3.125 MG PO Q12HR for 30 Days, #60 TAB Prov:ANA ROSA MICHAUD ASSAYER 04/29/23 Reported Medications Losartan Potassium (Losartan Potassium) 25 Mg Tab, 1 TAB PO DAILY 04/26/23 Baclofen (Baclofen) 20 Mg Tab, 10 MG PO BID, TAB 09/03/19 Gabapentin (Gabapentin) 100 Mg Cap, 800 MG PO TID for 30 Days, MG 09/03/19 Oixjhlqarpg-Rbmjaeyqeaotq-Pcsy (Biktarvy 50-200-25 mg) 1 Tab Tab, 1 TAB PO, TAB 09/03/19 Hydrocodone-Acetaminophen ([place] 5/325MG) 1 Tab Tb, 1 TAB PO, #90 TAB 09/03/19 Information Source: Patient Mode of Arrival: Ambulatory Severity: Moderate Past Medical History PAST MEDICAL HISTORY: CHF, COPD, HIV Surgical History: Denies all surgeries Family History Family History: Reviewed,noncontributory to illness Social History Smoker: Cigarettes Alcohol: Occasionally Drugs: Denies Drug Use Lives In: Home Constitutional: denies: chills, diaphoresis, fatigue, fever, malaise, sweats, weakness, others EENTM: denies: blurred vision, double vision, ear bleeding, ear discharge, ear drainage, ear pain, ear ringing, eye pain, eye redness, hearing loss, mouth pain, mouth swelling, nasal discharge, nose bleeding, nose congestion, nose pain, photophobia, tearing, throat pain, throat swelling, voice changes, others Respiratory: reports: SOB at rest, shortness of breath, SOB with excertion; denies: cough, hemoptysis, orthopnea, stridor, wheezing, others Cardiovascular: reports: chest pain, edema; denies: dizzy spells, diaphoresis, Dyspnea on exertion, irregular heart beat, left arm pain, lightheadedness, palpitations, PND, syncope, others Gastrointestinal: denies: abdomen distended, abdominal pain, blood streaked bowels, constipated, diarrhea, dysphagia, difficulty swallowing, hematemesis, melena, nausea, poor appetite, poor fluid intake, rectal bleeding, rectal pain, vomiting, others Genitourinary: denies: burning, dysuria, flank pain, frequency, hematuria, incontinence, penile discharge, penile sore, pain, testicle pain, testicle swelling, urgency, others Neurological: denies: dizziness, fainting, headache, left sided numbness, left sided weakness, numbness, paresthesia, pre-existing deficit, right sided numbness, right sided weakness, seizure, speech problems, tingling, tremors, weakness, others Musculoskeletal: denies: back pain, gout, joint pain, joint swelling, muscle pain, muscle stiffness, neck pain, others Integumetry: denies: bruises, change in color, change in hair/nails, dryness, laceration, lesions, lumps, rash, wounds, others Allergic/Immunocompromised: denies: Difficulty Healing, Frequent Infections, Hives, Itching, others Hematologic/Lymphatic: denies: anemia, blood clots, easy bleeding, easy bruising, swollen glands, others Endocrine: denies: excessive hunger, excessive sweating, excessive thirst, excessive urination, flushing, intolerance to cold, intolerance to heat, unexplained weight gain, unexplained weight loss, others Psychiatric: denies: anxiety, bipolar disorder, depression, hopeless, panic disorder, schizophrenia, sleepless, suicidal, others Physical Exam General Appearance: No Apparent Distress, Normal HEENT: Normal ENT Inspection, Pharynx Normal, TMs Normal Neck: Full Range of Motion, Non-Tender, Normal, Normal Inspection Respiratory: Chest Non-Tender, Lungs Clear, No Accessory Muscle Use, No Respiratory Distress, Normal Breath Sounds Cardiovascular: No Edema, No JVD, No Murmur, No Gallop, Normal Peripheral Pulses, Regular Rate/Rhythm Breast Exam: Deferred Gastrointestinal: No Organomegaly, Non Tender, No Pulsatile Mass, Normal Bowel Sounds, Soft Genitalia: Deferred Pelvic: Deferred Rectal: Deferred Extremities: No calf tenderness, Normal capillary refill, Normal inspection, Normal range of motion, Non-tender, No pedal edema Musculoskeletal : Apperance: Normal Neurologic: Alert, brine tank separator operator II-XII nml as Tested, No Motor Deficits, Normal Affect, Normal Mood, No Sensory Deficits Cerebellar Function: Normal Reflexes: Normal Skin: Dry, Normal Color, Warm Lymphatic: No Adenopathy Was a procedure done? Was a procedure done?: No Differential Dx Considerations may include: Anemia, electrolyte imbalance, CHF, COPD X-Ray, Labs, Meds, VS Vital Signs Date Time Temp Pulse Resp B/P (MAP) Pulse Ox O2 Delivery O2 Flow Rate FiO2 07/12/25 00:44 98.0 123 20 137/87 98 98.0 Lab Test 07/12/25 03:58 07/12/25 02:18 07/12/25 01:17 Range/Units Troponin I High Sensitivity 52 53 56 *H </=54 ng/L White Blood Count 7.8 4.4-10.8 10^3/uL Red Blood Count 4.31 L 4.5-5.90 10^6/uL Hemoglobin 13.1 L 13.5-17.5 g/dL Hematocrit 39.6 L 41.0-53.0 % Mean Corpuscular Volume 91.9 80.0-100.0 fL Mean Corpuscular Hemoglobin 30.3 28.0-32.0 pg Mean Corpuscular Hemoglobin Concent 32.9 32.0-36.0 g/dL Red Cell Distribution Width 14.0 11.8-14.3 % Platelet Count 215 140-450 10^3/uL Mean Platelet Volume 7.1 6.9-10.8 fL Neutrophils (%) (Auto) 71.7 37.0-80.0 % Lymphocytes (%) (Auto) 19.8 10.0-50.0 % Monocytes (%) (Auto) 7.2 0.0-12.0 % Eosinophils (%) (Auto) 0.8 0.0-7.0 % Basophils (%) (Auto) 0.5 0.0-2.0 % Neutrophils # (Auto) 5.6 1.6-8.6 10 ^3/uL Lymphocytes # (Auto) 1.6 0.4-5.4 10 ^3/uL Monocytes # (Auto) 0.6 0-1.3 10 ^3/uL Eosinophils # (Auto) 0.1 0-0.8 10 ^3/uL Basophils # (Auto) 0 0-0.2 10 ^3/uL Nucleated Red Blood Cells 0.0 % Prothrombin Time 11.3 9.3-11.8 sec Prothrombin Time INR 1.07 0.9-1.15 Activated Partial Thromboplast Time 29.2 24.5-34.5 SEC D-Dimer, Quantitative 1.68 H 0.0-0.49 mg/L FEU Sodium Level 142 136-145 mmol/L Potassium Level 4.6 3.5-5.1 mmol/L Chloride Level 108 H 98-107 mmol/L Carbon Dioxide Level 26 20-31 mmol/L Anion Gap 8 5-15 Blood Urea Nitrogen 21 9-23 mg/dL Creatinine 1.34 H 0.700-1.30 mg/dL Glomerular Filtration Rate Calc 63 >90 mL/min BUN/Creatinine Ratio 15.7 10.0-20.0 Serum Glucose 83 74-106 mg/dL Calcium Level 8.9 8.7-10.4 mg/dL Total Bilirubin 0.4 0.2-1.0 mg/dL Aspartate Amino Transferase (AST) 22 13-40 U/L Alanine Aminotransferase (ALT) 15 7-40 U/L Alkaline Phosphatase 119 H 46-116 U/L B-Type Natriuretic Peptide 1226.85 0-100 pg/mL Total Protein 6.9 5.7-8.2 g/dL Albumin 4.2 3.2-4.8 g/dL CHEST RADIOGRAPH Indication: SOB Technique: Single frontal view of the chest was obtained COMPARISON: XY CHEST XRAY 1 VIEW on DOS: 11/17/24, CT CT ANGIO CHEST CONTRAST on DOS: 04/25/23, CT ANGIO CHEST CONTRAST on DOS: 09/03/19, CHEST TWO VIEWS ROUTINE on DOS: 09/03/19 FINDINGS: Lines and Tubes: None Lungs: Clear Pleura: No effusion. No pneumothorax. Cardiomediastinal contours: Unremarkable Bones: Unremarkable IMPRESSION: 1. No acute disease. Time of 1ST Reevaluation: 02:07 Reevaluation 1ST: Unchanged Patient Education/Counseling: Diagnosis, Treatment Family Education/Counseling: Diagnosis, Treatment SEPSIS Sepsis Screen Date sepsis recognized/suspect: Jul 12, 2025 Time Sepsis recognized/suspect: 46 Recent Procedure: No On Antibiotic Therapy: No Respiratory Rate >20: No Heart Rate >90: Yes Temp<36 C (96.8 F) or >38.3 C: No SBP <90 or MAP <65 mmHG: No New Acute Mental Status Change: No Is the patient on CPAP, BIPAP,: No Physician Orders Electrocardigram (07/12/25 01:10) Chest Xray 1 View (07/12/25 01:10) Ct Angio Chest Contrast (07/12/25 03:00) Vital Signs Date Time Temp Pulse Resp B/P (MAP) Pulse Ox O2 Delivery O2 Flow Rate FiO2 07/12/25 00:44 98.0 123 20 137/87 98 98.0 Laboratory Tests Test 07/12/25 01:17 White Blood Count 7.8 10^3/uL (4.4-10.8) Departure 1 Departure Time of Disposition: 05:11 Impression: Primary Impression: Congestive heart failure Additional Impression: H/O deep venous thrombosis Disposition: ADMITTED INPATIENT Admit to: [facility] Condition: Guarded Discharged With: Self Comments 55-year-old male with a history of methamphetamine abuse and prior DVT and prior CHF now with dyspnea with exertion and bilateral lower extremity swelling. He has a bit tachycardic. Chest x-ray shows some CHF. BNP is elevated. Troponin is elevated. Patient was given Lasix and aspirin. Patient will need to be admitted for supportive care and further workup. Critical Care Note Critical Care Time?: Yes (35 min-critical care time only) Critical care comment: Total critical care time: Approximately 36 minutes Due to a high probability of clinically significant, life threatening deterioration, the patient required my highest level of preparedness to intervene emergently and I personally spent this critical care time directly and personally managing the patient. This critical care time included obtaining a history; examining the patient; pulse oximetry; ordering and review of studies; arranging urgent treatment with development of a management plan; evaluation of patient's response to treatment; frequent reassessment; and, discussions with other providers. This critical care time was performed to assess and manage the high probability of imminent, life-threatening deterioration that could result in multi-organ failure. It was exclusive of separately billable procedures and treating other patients. Stability Stability form required: No Heart Score Heart Score: Heart Score Response (Comments) Value History Moderate Suspicious 1 EKG Normal 0 Age 45-64 1 Risk Factors 1 or 2 risk factors 1 Troponin 1-2 x's Normal limit 1 Total 4 I personally scribed for GARY GIVENS MD ([email or web address]) on 07/12/25 at 02:11. Electronically submitted by Chano Pabon ([email or web address]). I personally scribed for GARY GIVENS MD ([email or web address]) on 07/12/25 at 03:08. Electronically submitted by Chano Pabon ([email or web address]). GARY GIVENS MD Jul 12, 2025 02:11
--- NOTE | 2025-07-12 02:22 | DVH ---
CHEST RADIOGRAPH Indication: SOB Technique: Single frontal view of the chest was obtained COMPARISON: XY CHEST XRAY 1 VIEW on DOS: 11/17/24, CT CT ANGIO CHEST CONTRAST on DOS: 04/25/23, CT ANGIO CHEST CONTRAST on DOS: 09/03/19, CHEST TWO VIEWS ROUTINE on DOS: 09/03/19 FINDINGS: Lines and Tubes: None Lungs: Clear Pleura: No effusion. No pneumothorax. Cardiomediastinal contours: Unremarkable Bones: Unremarkable IMPRESSION: 1. No acute disease.
[2025-07-12] MEDS ORDERED: FUROSEMIDE 40 MG/4 ML VIAL IV ONE (03:00)
[2025-07-12] MEDS ORDERED: FUROSEMIDE 20 MG TAB PO ONE (03:00)
[2025-07-12] MEDS ORDERED: SODIUM CHLORIDE 0.9% 1,000 ML IV ONE (03:00)
[2025-07-12] MEDS ORDERED: IOHEXOL 350 MG/ML 100ML IJ ONE (04:16)
[2025-07-12 04:31] LABS: INR 1.07 (0.9-1.15); Partial Thromboplastin Time 29.2 SEC (24.5-34.5); Prothrombin Time 11.3 sec (9.3-11.8)
== END 2025-07-12 05:58 | disposition left against medical advice (07) ==
LOC: ER 00:41
DX: I50.9 Heart failure, unspecified (principal); J44.9 Chronic obstructive pulmonary disease, unspecified; F17.210 Nicotine dependence, cigarettes, uncomplicated; Z79.899 Other long term (current) drug therapy; Z86.718 Personal history of other venous thrombosis and embolism
CPT/HCPCS: 36415; 71045; 80053; 83880; 84484; 85025; 85379; 85610; 85730; 99291